=== PATIENT | male | born 1950 | race Caucasian/White ===

== ENCOUNTER → 2024-01-23 07:31 | Outpatient (REF) | payer OTHER, SELFPAY | LOC: HWRAD 07:31 | PROVIDERS: ATTENDING PHYSICIAN Family Medicine | DX: L40.50 Arthropathic psoriasis, unspecified (principal); M25.552 Pain in left hip | CPT/HCPCS: 73502; 73564 ==

== ENCOUNTER → 2024-11-12 10:57 | Outpatient (REF) | payer SELFPAY | LOC: RAD 10:57 | PROVIDERS: ATTENDING PHYSICIAN Family Medicine | DX: E78.00 Pure hypercholesterolemia, unspecified (principal) | CPT/HCPCS: 75571 ==

== ENCOUNTER → 2025-01-23 14:27 | Outpatient (REF) | payer OTHER, SELFPAY | LOC: HWRAD 14:27 | PROVIDERS: ATTENDING PHYSICIAN Family Medicine | DX: M25.521 Pain in right elbow (principal) | CPT/HCPCS: 73080 ==